=== PATIENT | female | born 1985 | race Asian ===

== ENCOUNTER 2016-09-19 13:22 | Outpatient (CLI) | payer MEDICAID | END 2016-09-19 15:11 | disposition home or self-care (01) | DX: Z34.82 Encounter for supervision of other normal pregnancy, second trimester (principal) ==

== ENCOUNTER 2016-10-12 09:08 | Outpatient (CLI) | payer BC | END 2016-10-12 09:09 | disposition home or self-care (01) | DX: Z36 Encounter for antenatal screening of mother (principal) ==

== ENCOUNTER 2016-11-15 09:27 | Outpatient (CLI) | payer BC | END 2016-11-15 09:28 | disposition home or self-care (01) | DX: O10.012 Pre-existing essential hypertension complicating pregnancy, second trimester (principal) ==

== ENCOUNTER 2016-12-03 11:47 | Outpatient (CLI) | payer BC | END 2016-12-03 12:30 | disposition home or self-care (01) | DX: O10.913 Unspecified pre-existing hypertension complicating pregnancy, third trimester (principal); Z3A.33 33 weeks gestation of pregnancy ==

== ENCOUNTER 2016-12-10 12:01 | Outpatient (CLI) | payer BC | END 2016-12-10 14:20 | disposition home or self-care (01) | DX: O10.913 Unspecified pre-existing hypertension complicating pregnancy, third trimester (principal); Z3A.34 34 weeks gestation of pregnancy ==

== ENCOUNTER 2016-12-17 11:56 | Outpatient (CLI) | payer BC | END 2016-12-17 12:50 | disposition home or self-care (01) | DX: O10.913 Unspecified pre-existing hypertension complicating pregnancy, third trimester (principal); Z3A.35 35 weeks gestation of pregnancy ==

== ENCOUNTER 2016-12-21 07:30 | Outpatient (CLI) | payer BC | END 2016-12-21 07:31 | disposition home or self-care (01) | DX: Z36 Encounter for antenatal screening of mother (principal) ==

== ENCOUNTER 2016-12-24 11:56 | Outpatient (CLI) | payer BC | END 2016-12-24 12:30 | disposition home or self-care (01) | DX: O10.913 Unspecified pre-existing hypertension complicating pregnancy, third trimester (principal); Z3A.36 36 weeks gestation of pregnancy ==

== ENCOUNTER 2016-12-27 10:07 | Outpatient (CLI) | payer BC | END 2016-12-27 10:08 | disposition home or self-care (01) | DX: Z36 Encounter for antenatal screening of mother (principal) ==

== ENCOUNTER 2016-12-31 12:07 | Outpatient (CLI) | payer BC | END 2016-12-31 14:00 | disposition home or self-care (01) | DX: O10.913 Unspecified pre-existing hypertension complicating pregnancy, third trimester (principal); Z3A.37 37 weeks gestation of pregnancy ==

== ENCOUNTER 2017-01-03 08:05 | Outpatient (CLI) | payer BC | END 2017-01-03 09:00 | disposition home or self-care (01) | DX: O10.913 Unspecified pre-existing hypertension complicating pregnancy, third trimester (principal); O26.613 Liver and biliary tract disorders in pregnancy, third trimester; K83.1 Obstruction of bile duct; Z3A.37 37 weeks gestation of pregnancy ==

== ENCOUNTER 2017-01-04 18:00 | Observation (INO) | payer BC ==
[~2017-01-04 18:00] MED LIST: ONDANSETRON 4 MG/2 ML VIAL IVP PRN; SODIUM CHLORIDE FLUSH 0.9% 10 ML SYRINGE IVP PRN; fentaNYL 100 MCG/2 ML VIAL IVP PRN
[2017-01-04] MEDS ORDERED: DINOPROSTONE 10 MG SUPP VG ONE (19:00)
[2017-01-04] MEDS: LABETALOL 100 MG TABLET PO SCH (20:21)
[2017-01-04] MEDS: CALCIUM CARBONATE CHEW 500 MG TABLET PO PRN (22:04)
[2017-01-05] MEDS: SODIUM CHLORIDE FLUSH 0.9% 10 ML SYRINGE IVP SCH ×3 (05:40→16:35)
[2017-01-05] MEDS: LABETALOL 100 MG TABLET PO SCH ×2 (08:26→21:04)
[2017-01-05] MEDS ORDERED: DINOPROSTONE 10 MG SUPP VG ONE (10:45)
[2017-01-05] MEDS: ACETAMINOPHEN 325 MG TABLET PO PRN (21:07)
[2017-01-05] MEDS ORDERED: ZOLPIDEM 5 MG TABLET PO PRN (22:14)
[2017-01-05] MEDS: CALCIUM CARBONATE CHEW 500 MG TABLET PO PRN (22:56)
[2017-01-06] MEDS ORDERED: OXYTOCIN/LACTATED RINGERS 250 ML IV SCH (07:30)
[2017-01-06] MEDS: ACETAMINOPHEN 325 MG TABLET PO PRN ×2 (08:30→17:24)
[2017-01-06] MEDS: LABETALOL 100 MG TABLET PO SCH ×2 (08:30→17:24)
[2017-01-06] MEDS: SODIUM CHLORIDE FLUSH 0.9% 10 ML SYRINGE IVP SCH (08:33)
[2017-01-06] MEDS ORDERED: POLYETHYLENE GLYCOL 3350 17 GM PACKET PO PRN (08:41)
[2017-01-06] MEDS ORDERED: LACTATED RINGERS 1,000 ML IV ONE ×2 (09:27→12:09)
[2017-01-06] MEDS ORDERED: ROPIVACAINE 0.2% PF 10 ML VIAL EPI ONE (12:00)
[2017-01-06] MEDS ORDERED: fent/BUPIV 2 MCG/0.125% 250 ML EP ONE (12:06)
[2017-01-06] MEDS ORDERED: ONDANSETRON 4 MG/2 ML VIAL IVP PRN (12:40)
[2017-01-06] MEDS ORDERED: diphenhydrAMINE INJ 50 MG/ML VIAL IVP PRN (12:40)
[2017-01-06] MEDS ORDERED: fent/BUPIV 2 MCG/0.125% 250 ML EP PRN (12:40)
[2017-01-06] MEDS ORDERED: NALBUPHINE 20 MG/ML AMP IVP PRN (12:40)
[2017-01-06] MEDS: CALCIUM CARBONATE CHEW 500 MG TABLET PO PRN (13:24)
[2017-01-06] MEDS ORDERED: miSOPROStol 200 MCG TABLET ONE (14:55)
[2017-01-06] MEDS ORDERED: OXYTOCIN/LACTATED RINGERS 250 ML IV ONE (15:07)
[2017-01-06] MEDS ORDERED: HYDROCORTISONE/PRAMOXINE 10 GM PR PRN (15:07)
[2017-01-06] MEDS ORDERED: diphenhydrAMINE 25 MG CAPSULE PO PRN (15:07)
[2017-01-06] MEDS ORDERED: HYDROcod/ACETAM 5/325 MG TABLET PO PRN (15:07)
[2017-01-06] MEDS ORDERED: WITCH HAZEL/GLYCERIN 1 EACH MED..PAD TOP PRN (15:07)
[2017-01-06] MEDS ORDERED: LACTATED RINGERS 1,000 ML IV SCH (16:00)
[2017-01-06] MEDS: IBUPROFEN 600 MG TABLET PO SCH ×2 (17:24→23:32)
[2017-01-07] MEDS: LABETALOL 100 MG TABLET PO SCH ×3 (00:53→16:05)
[2017-01-07] MEDS: IBUPROFEN 600 MG TABLET PO SCH ×2 (05:17→14:41)
== END 2017-01-07 16:10 | disposition home or self-care (01) ==
PROC: 10907ZC Drainage of Amniotic Fluid, Therapeutic from Products of Conception, Via Natural or Artificial Opening (ICD-10-PCS; 2017-01-06)
PROC: 10E0XZZ Delivery of Products of Conception, External Approach (ICD-10-PCS; principal; 2017-01-07)
DX: O26.62 Liver and biliary tract disorders in childbirth (principal); K83.1 Obstruction of bile duct; O10.92 Unspecified pre-existing hypertension complicating childbirth; O69.1XX0 Labor and delivery complicated by cord around neck, with compression, not applicable or unspecified; O64.0XX0 Obstructed labor due to incomplete rotation of fetal head, not applicable or unspecified; Z3A.37 37 weeks gestation of pregnancy; Z37.0 Single live birth
CPT/HCPCS: 36415; 59409; 81003; 82239; 82565; 83615; 84450; 84550; 85025; 99217; 99218; 99224; A9270; J7120

== ENCOUNTER 2017-03-21 08:51 | Outpatient (CLI) | payer BC ==
[2017-03-21 16:00] LABS: CALCIUM 9.1 mg/dL (8.5-10.3); CREATININE 0.9 mg/dL (0.4-1.0)
== END 2017-03-21 08:52 | disposition home or self-care (01) ==
LOC: LAB.WCP 08:51
PROVIDERS: ATTEND Family Medicine
DX: R42 Dizziness and giddiness (principal)
CPT/HCPCS: 36415; 80048

== ENCOUNTER 2017-04-13 16:29 | Emergency (ER) | payer BC ==
--- NOTE | 2017-04-13 18:06 | ED Physician Documentation ---
PD HPI HEADACHE - Stated complaint Stated Complaint: ACHARYA VISION LOSS RT SIDE BALANCE ISSUE - Chief complaint Chief Complaint: Neuro - History obtained from History obtained from: Patient, Family - History of Present Illness Timing - onset: Today Timing - onset during: Rest Timing - duration: Hours (2) Timing - details: Gradual onset Pain level max: 8 Pain level now: 8 Worst headache ever?: No: Worst headache ever? Location: Left Quality: Throbbing, Aching Associated symptoms: No: Fever, Stiff neck, Nausea, Vomiting, Weakness, Numbness , Syncope, Seizure, Vision changes Improved by: Rest Worsened by: Light, Noise, Moving - Additional information Additional information: states blackened area to the R lateral eye today while driving at around noon, lasted 1 hour and then resolved. Developed a headache around 1230pm. States that improved with tylenol. Has had migraines in the past. Review of Systems Ten Systems: 10 systems reviewed and negative Constitutional: denies: Fever, Chills Ears: denies: Ear pain Nose: denies: Rhinorrhea / runny nose, Congestion Throat: denies: Sore throat Cardiac: denies: Chest pain / pressure Respiratory: denies: Cough GI: denies: Nausea, Vomiting, Diarrhea : denies: Now EGA Skin: denies: Rash Musculoskeletal: denies: Neck pain, Back pain Neurologic: denies: Focal weakness, Numbness, Seizure, Confused, Altered mental status, Head injury, LOC PD PAST MEDICAL HISTORY - Past Medical History Past Medical History: Yes Cardiovascular: Hypertension - Past Surgical History Past Surgical History: No - Present Medications Home Medications: Ambulatory Orders Medication Instructions Recorded Confirmed Lisinopril 20 mg PO DAILY 04/13/17 04/13/17 - Allergies Allergies/Adverse Reactions: Allergies Allergy/AdvReac Type Severity Reaction Status Date / Time No Known Drug Allergies Allergy Verified 04/13/17 16:35 - Social History Does the pt smoke?: No Smoking Status: Never smoker Does the pt drink ETOH?: No Does the pt have substance abuse?: No - Immunizations Immunizations are current?: Yes - POLST Patient has POLST: No PD ED PE NORMAL - Vitals Vital signs reviewed: Yes - General General: Alert and oriented X 3, No acute distress - HEENT HEENT: Atraumatic, PERRL, EOMI, Ears normal, Moist mucous membranes, Pharynx benign - Neck Neck: Supple, no meningeal sign - Cardiac Cardiac: RRR, Strong equal pulses - Respiratory Respiratory: No respiratory distress, Clear bilaterally - Abdomen Abdomen: Soft, Non tender, Non distended - Back Back: No CVA TTP, No spinal TTP - Derm Derm: Warm and dry, No rash - Extremities Extremities: Normal ROM s pain - Neuro Neuro: Alert and oriented X 3, 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 heel to ghosh normal B. normal finger to nose) - Psych Psych: Normal mood, Normal affect Results - Vitals Vitals: Vital Signs - 24 hr 04/13/17 04/13/17 16:33 18:09 Temperature 37.2 C 37.0 C Heart Rate 74 69 Respiratory 14 16 Rate Blood Pressure 147/99 H 155/99 H O2 Saturation 100 100 Oxygen O2 Source Room air - Rads (name of study) head Ct Radiology: Prelim report reviewed, EMP read contemporaneously, See rad report ( normal) PD MEDICAL DECISION MAKING - ED course Complexity details: reviewed results, re-evaluated patient, considered differential, d/w patient, d/w family ED course: Patient is a 31-year-old female who presents to the emergency department with what sounds like a complex migraine. No evidence of stroke. Negative head CT. Symptoms resolved with treatment of the headache. Headache resolved. Patient counseled regarding signs and symptoms for which I believe and urgent re- evaluation would be necessary. Patient with good understanding of and agreement to plan and is comfortable going home at this time This document was made in part using voice recognition software. While efforts are made to proofread this document, sound alike and grammatical errors may occur. Departure - Departure Disposition: 01 Home, Self Care Clinical Impression: Migraine Qualifiers: Migraine type: with aura Status migrainosus presence: without status migrainosus Intractability: not intractable Qualified Code(s): G43.109 - Migraine with aura, not intractable, without status migrainosus Condition: Good Instructions: ED Headache Migraine Follow-Up: Yi Soto MD [Primary Care Provider] - Within 1 week Comments: Return if you worsen. Your blood pressure was elevated today on check in to the emergency department. This does not mean that you have hypertension, it is a common phenomenon to check into the emergency department and have elevated blood pressure. I recommend that you see your primary care physician within the week to have it rechecked when you're feeling better. Discharge Date/Time: 04/13/17 19:34
[2017-04-13 18:10] VITALS: BP 155/99
[2017-04-13] MEDS ORDERED: SUMAtriptan 6 MG/0.5 ML VIAL SUBQ STA (18:21)
[2017-04-13] MEDS ORDERED: SUMAtriptan 6 MG/0.5 ML VIAL SUBQ ONE (18:28)
--- NOTE | 2017-04-13 18:57 | CT Preliminary Report ---
Exam: CT Head W/O IMPRESSION: Normal head CT. [facility] SITE ID: [id number]
--- NOTE | 2017-04-13 18:59 | CT Report ---
EXAM: CT HEAD EXAM DATE: 04/13/2017 06:36 PM. CLINICAL HISTORY: R sided facial numbness, L sided ACHARAY. COMPARISON: None. TECHNIQUE: Multiaxial CT images were obtained from the foramen magnum to the vertex. IV contrast: Non e. Reformats: Coronal. In accordance with CT protocol optimization, one or more of the following dose reduction techniques w ere utilized for this exam: automated exposure control, adjustment of mA and/or KV based on patient s ize, or use of iterative reconstructive technique. FINDINGS: Parenchyma: No intraparenchymal hemorrhage. No evidence of mass, midline shift, or CT findings of inf arction. Greer-white differentiation is distinct. Extraaxial Spaces: Normal for age. No subdural or epidural collections identified. Ventricles: Normal in size and position. Sinuses: Imaged paranasal sinuses, orbits, and mastoids show no significant abnormality. Bones: No evidence of fracture or calvarial defect. Other: None. IMPRESSION: Normal head CT. [facility] Referring Provider Line: [phone] SITE ID: [id number]
[2017-04-13] MEDS ORDERED: diphenhydrAMINE 25 MG CAPSULE PO STA (19:03)
[2017-04-13] MEDS ORDERED: PROMETHAZINE 25 MG TABLET PO STA (19:03)
[2017-04-13] MEDS ORDERED: IBUPROFEN 800 MG TABLET PO STA (19:03)
[2017-04-13] MEDS ORDERED: IBUPROFEN 800 MG TABLET PO ONE (19:15)
[2017-04-13] MEDS ORDERED: diphenhydrAMINE 25 MG CAPSULE PO ONE (19:15)
[2017-04-13] MEDS ORDERED: PROMETHAZINE 25 MG TABLET ONE (19:15)
== END 2017-04-13 19:34 | disposition home or self-care (01) ==
LOC: ED 16:29
DX: G43.109 Migraine with aura, not intractable, without status migrainosus (principal); R03.0 Elevated blood-pressure reading, without diagnosis of hypertension
CPT/HCPCS: 70450; 96372; 99283; 99284; A9270; Q0169

== ENCOUNTER 2017-04-20 11:50 | Outpatient (CLI) | payer BC | END 2017-04-20 11:51 | disposition home or self-care (01) | LOC: DI 11:50 | PROVIDERS: ATTEND Family Medicine | DX: I10 Essential (primary) hypertension (principal) | CPT/HCPCS: 93306 ==

== ENCOUNTER 2017-04-21 08:39 | Outpatient (CLI) | payer BC ==
--- NOTE | 2017-04-21 09:51 | Ultrasound Report ---
RENAL ULTRASOUND: 04/21/2017 CLINICAL INDICATION: Hypertension, benign essential. TECHNIQUE: Real-time scanning was performed with medical claims representative static images obtained. FINDINGS: The right kidney measures 10.3 x 4.8 x 4.2 cm, and the left kidney measures 10.3 x 5.3 x 4 .8 cm. No hydronephrosis, focal renal lesion, or perinephric collection is seen. Prevoid, the bladder measures 8.2 x 5.6 x 2.0 cm, yielding a prevoid volume of 48 mL. Bilateral uret eral jets are visualized. No significant postvoid residual. IMPRESSION: NORMAL RENAL ULTRASOUND. JOB #: [id number] EXT JOB #:[id number]
== END 2017-04-21 08:40 | disposition home or self-care (01) ==
LOC: DI 08:39
PROVIDERS: ATTEND Family Medicine
DX: I10 Essential (primary) hypertension (principal)
CPT/HCPCS: 76770

== ENCOUNTER 2018-07-16 17:39 | Emergency (ER) | payer BC ==
[2018-07-16 18:36] LABS: BASOPHILS % (AUTO) 0.6 %; EOSINOPHILS # (AUTO) 0.8 10^3/uL (0.0-0.7); EOSINOPHILS % (AUTO) 10.5 %; HGB - HEMOGLOBIN 13.7 g/dL (12.0-16.0); LYMPHOCYTES # (AUTO) 2.1 10^3/uL (1.5-3.5); LYMPHOCYTES % (AUTO) 27.9 %; MEAN CORPUSCULAR HEMOGLOBIN 29.8 pg (27.0-31.0); MEAN CORPUSCULAR HGB CONC 34.4 g/dL (32.0-36.0); MEAN CORPUSCULAR VOLUME 86.6 fL (81.0-99.0); MEAN PLATELET VOLUME 7.6 fL (7.9-10.8); MONOCYTES # (AUTO) 0.4 10^3/uL (0.0-1.0); MONOCYTES % (AUTO) 4.9 %; NEUTROPHILS # (AUTO) 4.3 10^3/uL (1.5-6.6); NEUTROPHILS % (AUTO) 56.1 %; PLT - PLATELET COUNT 248 10^3/uL (130-450); RED BLOOD COUNT 4.61 10^6/uL (4.20-5.40); RED CELL DISTRIBUTION WIDTH 12.9 % (12.0-15.0); WHITE BLOOD COUNT 7.6 x10^3/uL (4.8-10.8)
[2018-07-16 18:40] LABS: ALBUMIN 4.8 g/dL (3.2-5.5); ALBUMIN/GLOBULIN RATIO 1.5 (1.0-2.2); BILIRUBIN,TOTAL 0.4 mg/dL (0.2-1.0); CALCIUM 9.1 mg/dL (8.5-10.3); CREATININE 0.7 mg/dL (0.4-1.0); TOTAL PROTEIN 7.9 g/dL (6.7-8.2)
[2018-07-16 19:10] LABS: BILIRUBIN,URINE NEGATIVE (NEGATIVE); GLUCOSE, URINE (UA) NEGATIVE (NEGATIVE); KETONES,URINE (UA) NEGATIVE (NEGATIVE); LEUKOCYTE ESTERASE, URINE NEGATIVE (NEGATIVE); NITRITE,URINE NEGATIVE (NEGATIVE); OCCULT BLOOD,URINE NEGATIVE (NEGATIVE); PH,URINE 5.5 PH (5.0-7.5); PROTEIN,URINE NEGATIVE (NEGATIVE); UROBILINOGEN,URINE 0.2 (NORMAL) E.U./dL (NORMAL)
[2018-07-16] MEDS ORDERED: MAG HYDROX/AL HYDROX/SIMETH 30 ML UDC PO STA (19:12)
[2018-07-16] MEDS ORDERED: LIDOCAINE VISCOUS 2% 15 ML UDC MM STA (19:12)
[2018-07-16 19:14] LABS: CLARITY,URINE CLEAR (CLEAR); HCG UR QUAL NEGATIVE
--- NOTE | 2018-07-16 19:16 | ED Physician Documentation ---
PD HPI ABD PAIN - Stated complaint Stated Complaint: UPPER ABD PX - Chief complaint Chief Complaint: Abd Pain - History obtained from History obtained from: Patient - History of Present Illness Timing - onset: Other (33-year-old woman with no history of abdominal surgery has a week and a half worth of right upper quadrant epigastric pain worse after eating. There is no associated vomiting. She had diarrhea a few days ago which is now gone.) Review of Systems Ten Systems: 10 systems reviewed and negative Constitutional: denies: Fever, Chills, Myalgias Cardiac: denies: Chest pain / pressure, Palpitations Respiratory: denies: Dyspnea, Cough PD PAST MEDICAL HISTORY - Past Medical History Cardiovascular: Hypertension - Past Surgical History Past Surgical History: No - Present Medications Home Medications: Ambulatory Orders Medication Instructions Recorded Confirmed RX: Lisinopril 20 mg PO DAILY 04/13/17 07/16/18 RX: Omeprazole 20 mg PO DAILY #20 capsule. 07/16/18 - Allergies Allergies/Adverse Reactions: Allergies Allergy/AdvReac Type Severity Reaction Status Date / Time No Known Drug Allergies Allergy Verified 07/16/18 17:51 - Social History Does the pt smoke?: No Smoking Status: Never smoker Does the pt drink ETOH?: No Does the pt have substance abuse?: No - Immunizations Immunizations are current?: Yes - POLST Patient has POLST: No PD ED PE NORMAL - Vitals Vital signs reviewed: Yes - General General: Alert and oriented X 3, No acute distress - Cardiac Cardiac: RRR, No murmur - Respiratory Respiratory: No respiratory distress, Clear bilaterally - Abdomen Abdomen: Normal bowel sounds, Soft, Other (Mild epigastric tenderness without surgical signs) - Back Back: No CVA TTP, No spinal TTP - Derm Derm: Normal color, Warm and dry - Extremities Extremities: No edema, No calf tenderness / cord - Neuro Neuro: Alert and oriented X 3, Normal speech Results - Vitals Vitals: Vital Signs - 24 hr 07/16/18 07/16/18 17:47 19:18 Temperature 36.6 C 39.9 C H Heart Rate 85 80 Respiratory 17 16 Rate Blood Pressure 146/101 H 139/101 H O2 Saturation 99 100 Oxygen O2 Source Room air - Labs Labs: Laboratory Tests 07/16/18 07/16/18 07/16/18 18:00 18:14 18:14 WBC 7.6 RBC 4.61 Hgb 13.7 Hct 39.9 MCV 86.6 MCH 29.8 MCHC 34.4 RDW 12.9 Plt Count 248 MPV 7.6 L Neut # (Auto) 4.3 Lymph # (Auto) 2.1 [place] # (Auto) 0.4 Eos # (Auto) 0.8 H Baso # (Auto) 0.0 Absolute Nucleated RBC 0.00 Nucleated RBC % 0.0 Sodium 136 Potassium 3.6 Chloride 103 Carbon Dioxide 26 Anion Gap 7.0 BUN 14 Creatinine 0.7 Estimated GFR (MDRD) 98 Glucose 127 H Calcium 9.1 Total Bilirubin 0.4 AST 37 ALT 48 Alkaline Phosphatase 65 Total Protein 7.9 Albumin 4.8 Globulin 3.1 Albumin/Globulin Ratio 1.5 Lipase 44 Urine Color YELLOW Urine Clarity CLEAR Urine pH 5.5 Ur Specific [place] 1.015 Urine Protein NEGATIVE Urine Glucose (UA) NEGATIVE Urine Ketones NEGATIVE Urine Occult Blood NEGATIVE Urine Nitrite NEGATIVE Urine Bilirubin NEGATIVE Urine Urobilinogen 0.2 (NORMAL) Ur Leukocyte Esterase NEGATIVE Ur Microscopic Review NOT INDICATED Urine Culture Comments NOT INDICATED Urine HCG, Qual NEGATIVE - Rads (name of study) RUQ sono Radiology: EMP read contemporaneously (neg) PD MEDICAL DECISION MAKING - ED course ED course: 33-year-old woman with history and physical most consistent with gastritis. We will trial a GI cocktail. Labs are benign. She had no relief with a GI cocktail, will check a right upper quadrant ultrasound. She declined pain medication. Noted is a signing the chart the RN had documented a temperature of 39.9 on discharge. I was not notified of this. I asked her about it and she said this was incorrect and she would fix it. Departure - Departure Disposition: 01 Home, Self Care Clinical Impression: Abdominal pain, Gastritis Condition: Good Record reviewed to determine appropriate education?: Yes Instructions: ED Abdominal Pain Unkn Cause Prescriptions: RX: Omeprazole 20 mg PO DAILY #20 capsule. Comments: Call your doctor to arrange a follow-up appointment, make the next available appointment. In the interim, return anytime if worse or if new symptoms develop. Your blood pressure was elevated today on check into the emergency department. This does not mean that you have hypertension, it is a common phenomenon to come to the emergency department and have elevated blood pressure. I recommend that you see your primary care physician within the week to have it rechecked when you are feeling better. Discharge Date/Time: 07/16/18 20:40
[2018-07-16 19:20] VITALS: BP 139/101
[2018-07-16] MEDS ORDERED: PANTOPRAZOLE 40 MG TABLET PO STA (20:27)
--- NOTE | 2018-07-16 21:55 | Ultrasound Report ---
Reason: ruq / epigastric pain Procedure Date: 07/16/2018 Accession Number: [id number] / [id number] Procedure: US - Abdomen Limited CPT Code: FULL RESULT: EXAM: ABDOMEN ULTRASOUND LIMITED, RUQ EXAM DATE: 07/16/2018 08:06 PM. CLINICAL HISTORY: Ruq / epigastric pain. COMPARISON: None. TECHNIQUE: Real-time scanning was performed with static images obtained. FINDINGS: Liver: Normal in size and echotexture. 13.9 cm. Main portal vein flow: Hepatopetal. Gallbladder: Normal. No stones, wall thickening, or sonographic Arellano's sign. Biliary System: CBD measures 3 mm. No intrahepatic or extrahepatic ductal dilatation. Other: No right hydronephrosis. The visualized pancreas is unremarkable. IMPRESSION: Normal. No cholelithiasis or cholecystitis. [facility]
== END 2018-07-16 20:40 | disposition home or self-care (01) ==
LOC: ED 17:39
DX: K29.70 Gastritis, unspecified, without bleeding (principal); I10 Essential (primary) hypertension
CPT/HCPCS: 36415; 76705; 80053; 81003; 81025; 83690; 85025; 99283; A9270; 81001; 87086

== ENCOUNTER 2019-08-14 08:00 | Outpatient (CLI) | payer BC | END 2019-08-14 23:59 | disposition home or self-care (01) | LOC: LAB.WCP 08:00 | PROVIDERS: ATTEND Family Medicine | DX: N39.0 Urinary tract infection, site not specified (principal); R35.0 Frequency of micturition | CPT/HCPCS: 87086 ==

== ENCOUNTER 2020-03-13 14:02 | Outpatient (CLI) | payer BC ==
--- NOTE | 2020-03-17 13:23 | Mammography Report ---
BILATERAL DIGITAL DIAGNOSTIC MAMMOGRAM 3D/2D: 03/13/2020 CLINICAL: Diffuse left breast pain. Left Breast Heaviness. Bilateral breast lumps Baseline exam. Baseline exam. No prior exams were available for comparison. The tissue of both breasts is extremely dense, which lowers the sensitivity of mammography. There is a possible benign architectural distortion in the left breast anterior depth inferior region seen on the mediolateral oblique view only. This is not seen in additional views. No other significant masses, calcifications, or other findings are seen in either breast. No abnormal ity seen to explain the patients diffuse left breast pain. IMPRESSION: NEGATIVE There is no mammographic evidence of malignancy. Exam findings were conveyed to the patient. The patient is advised to monitor for significant change. Screening mammography is recommended, usually to commence at age 40 unless high risk. This exam was interpreted at Station ID: [id number]. NOTE: For mammograms, a report in lay terms will be sent to the patient. Approximately 15% of breast malignancies will not be visualized mammographically. In the management of a palpable breast mass, a negative mammogram must not discourage biopsy of a clinically suspicious lesion. Electronically Signed By: Francisco J Thomson M.D. slc/:03/13/2020 16:09:54 ACR BI-RADS Category 1: Negative 3341F PARENCHYMAL PATTERN: (VD) - The breast(s) demonstrate(s) extremely dense parenchyma, limiting the sen sitivity of mammography. BI-RADS CATEGORY: (1) - 1 Unspecified - other recall n/a LATERALITY: (B)
== END 2020-03-13 14:03 | disposition home or self-care (01) ==
LOC: DI 14:02
PROVIDERS: ATTEND Registered Nurse
DX: N63.20 Unspecified lump in the left breast, unspecified quadrant (principal); N63.10 Unspecified lump in the right breast, unspecified quadrant
CPT/HCPCS: 77066

== ENCOUNTER 2020-03-28 14:00 | Outpatient (CLI) | payer BC | END 2020-03-28 23:59 | disposition home or self-care (01) | LOC: LAB.WCP 14:00 | PROVIDERS: ATTEND Family Medicine | DX: N39.0 Urinary tract infection, site not specified (principal) | CPT/HCPCS: 87086; 87181 ==